=== PATIENT | male | born 2000 | race African-American/Black ===

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

== ENCOUNTER 2022-05-10 12:25 | Inpatient (IN) | payer OTHER ==
[~2022-05-10] VITALS: Ht 162.6 cm; Wt 60.7 kg
[~2022-05-10 12:25] MED LIST: PEPT262C2 PO
[2022-05-10 13:20] LABS: HEMATOCRIT 43.6 % (42.0-52.0); HEMOGLOBIN 14.3 g/dl (13.5-17.5); MEAN CORPUSCULAR HGB CONC 32.8 g/dl (32.0-36.5); MEAN CORPUSCULAR VOLUME 91.6 fl (80.0-96.0); PLATELET COUNT, AUTOMATED 234 10^3/uL (150-450); RED BLOOD COUNT 4.76 10^6/uL (4.30-6.10); WHITE BLOOD COUNT 6.1 10^3/uL (4.0-10.0)
[2022-05-10 13:40] LABS: ETHYL ALCOHOL (ETHANOL) 0.005 % (0.000-0.010)
[2022-05-10 13:41] LABS: ACETAMINOPHEN LEVEL < 2.0 UG/ML (10.0-20.0)
[2022-05-10 13:42] LABS: ALKALINE PHOSPHATASE 72 U/L (46-116); ALT/SGPT 14 U/L (7.0-40); AST/SGOT 27 U/L (<34); BILIRUBIN,DIRECT 0.2 MG/DL (<0.4); BILIRUBIN,TOTAL 0.6 MG/DL (0.3-1.2); BLOOD UREA NITROGEN 10 MG/DL (9-23); CALCIUM LEVEL 8.8 MG/DL (8.5-10.1); CARBON DIOXIDE LEVEL 30 MMOL/L (20-31); CHLORIDE LEVEL 104 MMOL/L (98-107); CREATININE FOR GFR 1.16 MG/DL (0.70-1.30); GLUCOSE, FASTING 91 MG/DL (60-100); POTASSIUM SERUM 4.1 MMOL/L (3.5-5.1); SALICYLATE LEVEL < 3.0 MG/DL (<30); SODIUM LEVEL 139 MMOL/L (136-145)
[2022-05-10 13:44] LABS: THYROID STIMULATING HORMONE 2.034 uIU/ML (0.48-4.17)
[2022-05-10 14:04] LABS: BARBITURATES URINE NEGATIVE (NEGATIVE); COCAINE METABOLITE URINE NEGATIVE (NEGATIVE)
[2022-05-10 14:05] LABS: AMPHETAMINES LEVEL URINE NEGATIVE (NEGATIVE); BENZODIAZEPINES URINE NEGATIVE (NEGATIVE); CANNABINOIDS URINE NEGATIVE (NEGATIVE); METHADONE URINE NEGATIVE (NEGATIVE); OPIATES URINE NEGATIVE (NEGATIVE); PHENCYCLIDINE URINE NEGATIVE (NEGATIVE)
[2022-05-10] MEDS ORDERED: HOME MED LIST COMPLETE! XX SCH (14:15)
[2022-05-11] MEDS: NICOTINE 21MG/24HR 1 EA TRANSDERMAL TD SCH (09:00)
[2022-05-11] MEDS ORDERED: MOM 30ML SUSPENSION UDC PO PRN (13:10)
[2022-05-11] MEDS ORDERED: diphenhydrAMINE 25MG CAP PO PRN (13:10)
[2022-05-11] MEDS ORDERED: MAALOX 30 ML SUSP *UDC PO PRN (13:10)
[2022-05-11 16:43] VITALS: BP 119/70
[2022-05-11] MEDS: IBUPROFEN 400MG TAB PO PRN (17:25)
[2022-05-12 06:24] VITALS: BP 110/58
[2022-05-12] MEDS: NICOTINE 21MG/24HR 1 EA TRANSDERMAL TD SCH (09:00)
[2022-05-12] MEDS: SERTRALINE HCL 50 MG TAB PO SCH (11:44)
[2022-05-12 16:27] VITALS: BP 96/54
[2022-05-12] MEDS: traZODone 50 MG TAB PO PRN (22:48)
[2022-05-12] MEDS: PRAZOSIN 1 MG CAP PO SCH (22:48)
[2022-05-13 06:46] VITALS: BP 96/46
[2022-05-13] MEDS: SERTRALINE HCL 50 MG TAB PO SCH (09:23)
[2022-05-13 17:35] VITALS: BP 112/58
[2022-05-13] MEDS: traZODone 50 MG TAB PO PRN (23:09)
[2022-05-13] MEDS: PRAZOSIN 1 MG CAP PO SCH (23:09)
[2022-05-14 06:38] VITALS: BP 111/54
[2022-05-14] MEDS: SERTRALINE HCL 50 MG TAB PO SCH (08:20)
[2022-05-14 16:24] VITALS: BP 128/67
[2022-05-14] MEDS: PRAZOSIN 1 MG CAP PO SCH (21:40)
[2022-05-14] MEDS: traZODone 50 MG TAB PO PRN (23:16)
[2022-05-15] MEDS: IBUPROFEN 400MG TAB PO PRN (00:04)
[2022-05-15 06:00] VITALS: BP 96/50
[2022-05-15] MEDS: SERTRALINE HCL 50 MG TAB PO SCH (10:11)
[2022-05-15 18:24] VITALS: BP 135/63
[2022-05-15] MEDS: busPIRone 5 MG TAB PO SCH (21:36)
[2022-05-15] MEDS: PRAZOSIN 1 MG CAP PO SCH (21:37)
[2022-05-16 05:57] VITALS: BP 116/56
[2022-05-16] MEDS: SERTRALINE HCL 25 MG TABLET PO SCH (09:14)
[2022-05-16] MEDS: busPIRone 5 MG TAB PO SCH ×2 (09:14→23:11)
[2022-05-16 18:36] VITALS: BP 131/60
[2022-05-16] MEDS: traZODone 50 MG TAB PO PRN (23:11)
[2022-05-16 23:20] VITALS: BP 134/63
[2022-05-16] MEDS: PRAZOSIN 1 MG CAP PO SCH (23:20)
[2022-05-17 06:53] VITALS: BP 105/53
[2022-05-17] MEDS ORDERED: BUSP5TA PO (10:23)
[2022-05-17] MEDS ORDERED: MINI1CAP PO (10:23)
[2022-05-17] MEDS ORDERED: TRAZ-252 PO (10:23)
[2022-05-17] MEDS ORDERED: SERT25TA21 PO (10:23)
[2022-05-17] MEDS: busPIRone 5 MG TAB PO SCH (10:33)
[2022-05-17] MEDS: SERTRALINE HCL 25 MG TABLET PO SCH (10:35)
== END 2022-05-17 12:20 | disposition home or self-care (01) | DRG 881 ==
LOC: EDBD 12:25 → M ED 12:25 → M ED INP 05-11 13:06 → M PSY 05-11 16:24
PROVIDERS: ADMIT Psychiatry & Neurology Psychiatry; ATTEND Psychiatry & Neurology Psychiatry
DX: F32.9 Major depressive disorder, single episode, unspecified (principal); U07.1 COVID-19; R45.851 Suicidal ideations